=== PATIENT | male | born 1950 | race Caucasian/White ===

== ENCOUNTER 2018-12-30 06:31 | Emergency (ER) | payer MEDICAID, OTHER ==
[~2018-12-30] VITALS: Wt 78.0 kg
[2018-12-30] MEDS ORDERED: KETOROLAC 30 MG INJ IV STA (06:53)
[2018-12-30] MEDS ORDERED: ONDANSETRON 4 MG INJ IV STA (06:53)
[2018-12-30] MEDS ORDERED: SOD CHLORIDE 0.9% 1,000 ML IV STA (06:53)
[2018-12-30] MEDS ORDERED: PSEU-79 PO (08:01)
[2018-12-30] MEDS ORDERED: FLUT9.9S NASAL (08:01)
[2018-12-30] MEDS ORDERED: NAPR-985 PO (08:01)
[2018-12-30 08:24] VITALS: BP 134/70; PULSE 66; RESP 18
--- NOTE | 2018-12-30 09:12 | ERD ---
ER Documentation Chief Complaint Chief Complaint HEADACHE AND HIGH BP READING FOR A FEW DAYS. NO NEURO DEFICIT HPI 68-year-old male presenting with headache. Patient had high blood pressure reading over the last 2 days and is concerned because he is now has a headache. Denies any visual changes. Denies vomiting. Has not taken medications for headache. Denies any chest pain or shortness of breath. Medical history is hypertension. NKDA. Surgical history denies. Social history denies ROS All systems reviewed and are negative except as per history of present illness. Medications Home Meds Active Scripts Naproxen* (Naprosyn*) 500 Mg Tablet, 500 MG PO BID PRN for PAIN AND/OR INFLAMMATION, #30 TAB Prov:AURELIO CHUNG PA-C 12/30/18 Fluticasone Propionate (Flonase Allergy Relief) 9.9 Ml [place].susp, 1 SPRAY NASAL BID, #1 BOTTLE TO EACH NOSTRIL Prov:AURELIO CHUNG PA-C 12/30/18 Pseudoephedrine Hcl* (Suphedrin*) 30 Mg Tablet, 30 MG PO Q6 PRN for CONGESTION, #30 TAB Prov:AURELIO CHUNG PA-C 12/30/18 Allergies Allergies: Coded Allergies: No Known Allergy (Unverified , 04/13/14) PMhx/Soc Medical and Surgical Hx: pt denies Surgical Hx Hx Cardiac Disorders: Yes (HTN) Hx Alcohol Use: Yes (OCCASSIONAL) Hx Substance Use: No Hx Tobacco Use: No Smoking Status: Never smoker Physical Exam Vitals Vital Signs Date Temp Pulse Resp B/P (MAP) Pulse Ox O2 O2 Flow FiO2 Time Delivery Rate 12/30/18 99.0 66 18 134/70 98 Room Air 08:24 (91) 12/30/18 98.0 83 18 145/84 95 06:34 (104) Physical Exam GENERAL: The patient is well-appearing, well-nourished, in no acute distress HEENT: Atraumatic. Conjunctivae are pink. Pupils equal, round, and reactive to light. There is no scleral icterus. Tympanic membranes clear bilaterally. Oropharynx clear. No nystagmus or photophobia. CHEST: Clear to auscultation bilaterally. There are no rales, wheezes or rhonchi. HEART: Regular rate and rhythm. No murmurs, clicks, rubs or gallops. No S3 or S4. EXTREMITIES: Equal pulses bilaterally. There is no peripheral clubbing, cyanosis or edema. No focal swelling or erythema. Full range of motion. Grossly neurovascularly intact. NEUROLOGIC: Alert and oriented. Cranial nerves II through XII intact. Motor strength in all 4 extremities with 5 out of 5 strength. Sensation grossly intact. Normal speech and gait. Babinski negative. DTR 2+ throughout. SKIN: There is no apparent rash or petechiae. The skin is warm and dry. Result Diagram: 12/30/18 0711 12/30/18 0711 Results 24 hrs Laboratory Tests Test 12/30/18 07:11 White Blood Count 9.0 10^3/ul Red Blood Count 5.70 10^6/ul Hemoglobin 16.2 g/dl Hematocrit 48.4 % Mean Corpuscular Volume 84.9 fl Mean Corpuscular Hemoglobin 28.4 pg Mean Corpuscular Hemoglobin Concent 33.5 g/dl Red Cell Distribution Width 12.7 % Platelet Count 269 10^3/UL Mean Platelet Volume 10.6 fl Immature Granulocytes % 0.200 % Neutrophils % 57.2 % Lymphocytes % 24.0 % Monocytes % 8.3 % Eosinophils % 9.4 % Basophils % 0.9 % Nucleated Red Blood Cells % 0.0 /100WBC Immature Granulocytes # 0.020 10^3/ul Neutrophils # 5.1 10^3/ul Lymphocytes # 2.2 10^3/ul Monocytes # 0.7 10^3/ul Eosinophils # 0.8 10^3/ul Basophils # 0.1 10^3/ul Nucleated Red Blood Cells # 0.0 10^3/ul Urine Color YELLOW Urine Clarity CLEAR Urine pH 5.0 Urine Specific Alpha 1.024 Urine Ketones NEGATIVE mg/dL Urine Nitrite NEGATIVE mg/dL Urine Bilirubin NEGATIVE mg/dL Urine Urobilinogen 1+ mg/dL Urine Leukocyte Esterase NEGATIVE Ger/ul Urine Hemoglobin NEGATIVE mg/dL Urine Glucose NEGATIVE mg/dL Urine Total Protein NEGATIVE mg/dl Sodium Level 144 mmol/L Potassium Level 5.2 mmol/L Chloride Level 106 mmol/L Carbon Dioxide Level 30 mmol/L Anion Gap 8 Blood Urea Nitrogen 19 mg/dl Creatinine 0.89 mg/dl Est Glomerular Filtrat Rate mL/min > 60 mL/min Glucose Level 112 mg/dl Calcium Level 9.0 mg/dl Total Bilirubin 1.0 mg/dl Direct Bilirubin 0.00 mg/dl Indirect Bilirubin 1.0 mg/dl Aspartate Amino Transf (AST/SGOT) 20 IU/L Alanine Aminotransferase (ALT/SGPT) 29 IU/L Alkaline Phosphatase 119 IU/L Total Protein 8.3 g/dl Albumin 4.4 g/dl Globulin 3.90 g/dl Albumin/Globulin Ratio 1.12 Current Medications Medications Dose Sig/Adrienne Start Time Status Last (Trade) Ordered Route PRN Stop Time Admin Dose Reason Admin Sodium 1,000 ml @ Q1H STAT 12/30/18 DC 12/30/18 Chloride 1,000 mls/hr IV 06:53 07:15 12/30/18 07:52 Ondansetron 4 mg ONCE STAT 12/30/18 DC 12/30/18 HCl (Zofran IV 06:53 07:18 Inj) 12/30/18 06:55 Ketorolac 30 mg ONCE STAT 12/30/18 DC 12/30/18 Tromethamine IV 06:53 07:18 (Toradol) 12/30/18 06:55 Procedures/MDM DIAGNOSTIC IMAGING REPORT Patient: POPEYE HASTINGS : 1950 Age: 68 Sex: M MR #: [id number] DOS: 12/30/18 0653 Ordering MD: CRISTINA CHUNG PA-C Location: [facility] Room/Bed: PROCEDURE: CT BRAIN WITHOUT CONTRAST CLINICAL INDICATION: 68-year-old male with headaches. TECHNIQUE: The study was performed utilizing [employer] VCT 64-slice CT scanner. Direct axial sections were obtained from the foramen magnum to the vertex without the use of intravenous contrast material. Sagittal and coronal reformations were obtained. One or more of the following dose reduction techniques were utilized: automated exposure control, adjustment of the mA and/or kV according to patient's size or use of iterative reconstruction technique. DICOM images are available. The images were viewed on a PACS workstation. CTD/vol = 38.62 mGy; Total Exam DLP = 634.23 mGy.cm. COMPARISON: None. FINDINGS: There is mild prominence of the sulci and cisternal spaces consistent with volume loss with compensatory ventricular enlargement. There is no evidence for mass effect or midline shift. There are no intracranial areas of abnormal attenuation. There is no evidence for acute intra or extra-axial blood. The bony calvarium is intact. There is moderate mucosal thickening within the partially visualized ethmoid air cells. The mastoid air cells are without significant soft tissue. IMPRESSION: 1. Mild diffuse volume loss. 2. Moderate mucosal thickening partially visualized ethmoid air cells. ER Course: 1L NS, toradol, zofran given in ED MDM; 68-year-old male presenting with headache. I have low suspicion for intracranial hemorrhage or neuro deficit. I have low suspicion for meningitis or sepsis. Patient's headache is likely associated with sinus congestion and I do not feel there is indication for antibiotics. Patient is discharged with strict ER precautions and told to follow-up with primary care within 1 to 2 days for close evaluation. Patient is told symptoms change or worsen to return immediately to the ER. All questions answered at discharge Departure Diagnosis: Primary Impression: Sinus congestion Additional Impression: Headache Condition: Stable Patient Instructions: Self-Care for Headaches Referrals: [facility] YOU HAVE RECEIVED A MEDICAL SCREENING EXAM AND THE RESULTS INDICATE THAT YOU DO NOT HAVE A CONDITION THAT REQUIRES URGENT TREATMENT IN THE EMERGENCY DEPARTMENT. FURTHER EVALUATION AND TREATMENT OF YOUR CONDITION CAN WAIT UNTIL YOU ARE SEEN IN YOUR DOCTORS OFFICE WITHIN THE NEXT 1-2 DAYS. IT IS YOUR RESPONSIBILITY TO MAKE AN APPOINTMENT FOR FOLOW-UP CARE. IF YOU HAVE A PRIMARY DOCTOR --you should call your primary doctor and schedule an appointment IF YOU DO NOT HAVE A PRIMARY DOCTOR YOU CAN CALL OUR PHYSICIAN REFERRAL HOTLINE AT IF YOU CAN NOT AFFORD TO SEE A PHYSICIAN YOU CAN CHOSE FROM THE FOLLOWING [facility] [id number] [facility] [address] [employer] [facility] [facility] [address] [facility] [address] [facility] [address] [facility]. [facility]. [address] Additional Instructions: FOLLOW UP WITH YOUR PRIMARY CARE PHYSICIAN TOMORROW.Return to this facility if you are not improving as expected. AURELIO CHUNG PA-C December 30, 2018 09:12
== END 2018-12-30 08:27 | disposition home or self-care (01) ==
LOC: FTE 06:31
DX: R51 Headache (principal); R09.81 Nasal congestion; I10 Essential (primary) hypertension
CPT/HCPCS: 70450; 80053; 81003; 85025; 96374; 96375; 99285; J1885; J2405; J7030